=== PATIENT | female | born 1995 | race Two or more races ===

== ENCOUNTER 2018-11-07 06:16 | Emergency (ER) | payer OTHER ==
[~2018-11-07] VITALS: Ht 160 cm; Wt 90.9 kg
[2018-11-07] MEDS ORDERED: METHOCARBAMOL 500 MG TAB PO ONE (06:45)
[2018-11-07] MEDS ORDERED: KETOROLAC 60 MG/2 ML VIAL (J1885) IM ONE (06:45)
[2018-11-07] MEDS ORDERED: NAPR-885 PO (07:28)
[2018-11-07] MEDS ORDERED: ROBA500T PO (07:28)
[2018-11-07 07:34] VITALS: BP 124/86
== END 2018-11-07 07:37 | disposition home or self-care (01) ==
LOC: M ED 06:16
DX: S46.812A Strain of other muscles, fascia and tendons at shoulder and upper arm level, left arm, initial encounter (principal); X58.XXXA Exposure to other specified factors, initial encounter; Y92.9 Unspecified place or not applicable; Y93.9 Activity, unspecified; Y99.9 Unspecified external cause status; Z88.8 Allergy status to other drugs, medicaments and biological substances
CPT/HCPCS: 96372; 99283; J1885